=== PATIENT | male | born 1945 | race Caucasian/White ===

== ENCOUNTER 2017-09-09 20:28 | Emergency (ER) | payer MEDICARE ==
[2017-09-09 20:50] VITALS: BP 128/63
[2017-09-09] MEDS ORDERED: Lidocaine 1% MPF* 2 ML VIAL INJ ONE (21:07)
--- NOTE | 2017-09-09 21:14 | UC ---
Laceration HPI - HPI Summary HPI Summary: PATIENT FELL OFF A CHAIR IN HIS KITCHEN ABOUT 4 HOURS [employer]. STRUCK HIS LEFT FOREHEAD ON THE [place] FLOOR AND SUSTAINED A LACERATION. NO LOC. PATIENT DENIES HEADACHE, NAUSEA, DIZZINESS, VISUAL DISTURBANCE. HAS A HISTORY OF PARKINSON'S DISEASE AND HAS BEEN FALLING RECENTLY. PATIENT SEES NEUROLOGY IN [place] AND ALSO HAS A LOCAL NEUROLOGIST HERE - DR. NORIEGA. - History Of Current Complaint Chief Complaint: UCSkin Stated Complaint: HEAD LAC Time Seen by Provider: 09/09/17 20:55 Hx Obtained From: Patient, Family/General Agent - Laceration Location: Face - LEFT FOREHEAD Mechanism Of Injury: Blunt Trauma Onset/Duration: Sudden Onset, Lasting Hours, Still Present Severity: Moderate Pain Intensity: 3 Pain Scale Used: 0-10 Numeric - Allergies/Home Medications Allergies/Adverse Reactions: Allergies Allergy/AdvReac Type Severity Reaction Status Date / Time Penicillins Allergy Severe Vomiting Verified 09/09/17 20:38 Home Medications: Home Medications Baclofen TAB* [Lioresal TAB*] 20 mg PO QID 09/09/17 [History Confirmed 09/09/17 ] Carbidopa/Levodop 25/100 MG(*) [Sinemet 25/100 TAB(*)] 1 tab PO TID 09/09/17 [ History Confirmed 09/09/17] Ropinirole HCl [Requip] 1 mg PO TID 09/09/17 [History Confirmed 09/09/17] PMH/Surg Hx/FS Hx/Imm Hx Other Neurological History: PARKINSONS DISEASE - Surgical History Surgical History: Yes Surgery Procedure, Year, and Place: TONSILECTOMY, BILATERAL BREAST LUMPECTOMY ( [facility]IGN) - Family History Known Family History: Positive: Hypertension - Social History Alcohol Use: Occasionally Substance Use Type: None Smoking Status (MU): Never Smoked Tobacco Review of Systems Constitutional: Negative Skin: Other - LACERATION Respiratory: Negative Cardiovascular: Negative Gastrointestinal: Negative Neurological: Negative All Other Systems Reviewed And Are Negative: Yes Physical Exam Triage Information Reviewed: Yes Appearance: Well-Appearing, No Pain Distress, Well-Nourished Vital Signs: Initial Vital Signs Temp 99.8 F 09/09/17 20:42 Pulse 100 09/09/17 20:42 Resp 16 09/09/17 20:42 BP 128/63 09/09/17 20:42 Pulse Ox 96 09/09/17 20:42 Vital Signs Reviewed: Yes Eyes: Positive: Conjunctiva Clear ENT: Positive: Hearing grossly normal, Pharynx normal, TMs normal, Other - NO FLUID FROM NOSE OR EARS. NO BATTLES SIGN. NO RACCOON EYES Neck: Positive: Supple Respiratory: Positive: No respiratory distress, No accessory muscle use Cardiovascular: Positive: Pulses Normal Neurological: Positive: Alert Psychological: Positive: Normal Response To Family, Age Appropriate Behavior Skin: Positive: Other - 2.5CM LINEAR LACERATION LEFT FOREHEAD WITH SURROUNDING HEMATOMA Laceration Repair - Laceration Repair 1 Description: Linear Laceration Size After Repair: Length (cm) - 2.5CM, Width (mm) - 0MM, Depth (mm) - 4MM Modified For Repair: No Type Injection: Local Anesthesia Used: 1.0% Lido Irrigation With Pressure Irrigation Device: Yes Closure Material: Sutures - 8 SIMPLE INTERRUPTED Closure Method: Single Layer Suture Of: Skin Suture Type: Prolene - 5-0 Laceration Course/Dx - Course/Dx Course Of Treatment: PT WITH MINIMAL DISCOMFORT AT LAC SITE. DENIES MORA, NAUSEA, DIZZINESS, VISUAL DISTURBANCES. OFFERED HEAD CT BASED ON AGE AND DEBILITY. PT AND DECLINE WHICH IS REASONABLE. LACERATION REPAIRED. WILL FOLLOW-UP WITH DR. OLVERA FOR TDAP IF NEEDED. - Differential Dx - Laceration/Wound Provider Diagnoses: LACERATION REPAIR LEFT FOREHEAD Discharge - Sign-Out/Discharge Documenting (check all that apply): Discharge/Admit/Transfer - Discharge Plan Condition: Stable Disposition: HOME Patient Education Materials: Laceration (ED), Hematoma (ED) Referrals: Arnulfo Olvera MD [Primary Care Provider] - If Needed Additional Instructions: KEEP DRESSINGS IN PLACE AND DRY FOR THE FIRST 24 HRS. THEN YOU MAY REMOVE THE DRESSING AND GENTLY CLEANSE WITH SOAP AND WATER. PAT DRY AND RE-BANDAGE. APPLY THIN LAYER ANTIBIOTIC OINTMENT UNDER BANDAGE FOR FIRST 3-4 DAYS ONLY. CHANGE BANDAGE DAILY AND NEEDED IF IT BECOMES SOILED OR WET. SEEK FOLLOW-UP IF YOU DEVELOP SPREADING REDNESS OF THE SKIN, PURULENT DRAINAGE, FEVER, INCREASED PAIN OR ANY OTHER CONCERNING SYMPTOMS. RETURN TO HAVE YOUR EIGHT SUTURES REMOVED IN 10 DAYS FOLLOW-UP WITH DR. OLVERA RE: TDAP BOOSTER. RECOMMEND BOOSTING IF NOT DONE IN THE LAST 5 YEARS. - Billing Disposition and Condition Condition: STABLE Disposition: Home
[2017-09-09] MEDS ORDERED: Lidocaine 1%* 5 ML VIAL ONE (21:15)
== END 2017-09-09 22:20 | disposition home or self-care (01) ==
LOC: UCEAST 20:28
DX: S01.81XA Laceration without foreign body of other part of head, initial encounter (principal); W07.XXXA Fall from chair, initial encounter; Y93.9 Activity, unspecified; Y92.000 Kitchen of unspecified non-institutional (private) residence as the place of occurrence of the external cause; G20 Parkinson's disease; Z88.0 Allergy status to penicillin; Z82.49 Family history of ischemic heart disease and other diseases of the circulatory system
CPT/HCPCS: 12011; 99211; G0463

== ENCOUNTER 2017-09-19 21:13 | Emergency (ER) | payer MEDICARE ==
[2017-09-19 21:23] VITALS: BP 141/62
--- NOTE | 2017-09-19 21:26 | UC ---
HPI Wound/Suture Re-check - HPI Summary HPI Summary: Patient was here 10 days ago and had a laceration repair to the left upper side of his forehead. Patient is here today to have 8 sutures removed. Patient reports this feels well caused no difficulties - History Of Current Complaint Chief Complaint: UCSkin Stated Complaint: STITCHES REMOVED Time Seen by Provider: 09/19/17 21:20 Hx Obtained From: Patient Onset/Duration: Sudden Onset, Lasting Days - 10, Resolved Surgical Site: left side of forehead Pain Intensity: 0 - Allergies/Home Medications Allergies/Adverse Reactions: Allergies Allergy/AdvReac Type Severity Reaction Status Date / Time Penicillins Allergy Severe Vomiting Verified 09/19/17 21:23 PMH/Surg Hx/FS Hx/Imm Hx Previously Healthy: Yes - Parkinsons - Surgical History Surgical History: Yes Surgery Procedure, Year, and Place: TONSILECTOMY, BILATERAL BREAST LUMPECTOMY ( [facility]IGN) - Family History Known Family History: Positive: Hypertension - Social History Occupation: Retired Lives: With Family Alcohol Use: Occasionally Substance Use Type: None Smoking Status (MU): Never Smoked Tobacco Review of Systems Constitutional: Negative Skin: Other - well healed wound left side of forehead Eyes: Negative ENT: Negative Respiratory: Negative Cardiovascular: Negative Gastrointestinal: Negative Genitourinary: Negative Motor: Negative Neurovascular: Negative Musculoskeletal: Negative Neurological: Negative Psychological: Negative Is Patient Immunocompromised?: No All Other Systems Reviewed And Are Negative: Yes Physical Exam Triage Information Reviewed: Yes Appearance: Well-Appearing, No Pain Distress, Well-Nourished Vital Signs Reviewed: Yes Eye Exam: Normal Eyes: Positive: Conjunctiva Clear ENT Exam: Normal ENT: Positive: Normal ENT inspection, Hearing grossly normal. Negative: Trismus , Muffled voice Dental Exam: Normal Neck exam: Normal Neck: Positive: Supple, Nontender Respiratory Exam: Normal Respiratory: Positive: Chest non-tender, No respiratory distress, No accessory muscle use Cardiovascular Exam: Normal Cardiovascular: Positive: RRR, Brisk Capillary Refill Musculoskeletal Exam: Normal Musculoskeletal: Positive: Strength Intact, ROM Intact, Other: - chronic spastic paralaysis Neurological Exam: Normal Neurological: Positive: Alert. Negative: Muscle Tone Normal Psychological Exam: Normal Skin Exam: Normal Skin: Positive: Other - sutures in place well headed wound to left side of forehead Course/Dx - Course Course Of Treatment: sutures removed, wound well approximated, continue with mild soap and water wash recheck with pcp prn - Differential Dx - Laceration/Wound Provider Diagnoses: suture removal left forehead Discharge - Sign-Out/Discharge Documenting (check all that apply): Discharge/Admit/Transfer - Discharge Plan Condition: Stable Disposition: HOME Patient Education Materials: Stitches Removal (ED) Referrals: Arnulfo Olvera MD [Primary Care Provider] - If Needed - Billing Disposition and Condition Condition: STABLE Disposition: Home
== END 2017-09-19 21:36 | disposition home or self-care (01) ==
LOC: UCEAST 21:13
DX: S01.81XD Laceration without foreign body of other part of head, subsequent encounter (principal); X58.XXXD Exposure to other specified factors, subsequent encounter; G20 Parkinson's disease; Z88.0 Allergy status to penicillin; Z82.49 Family history of ischemic heart disease and other diseases of the circulatory system

== ENCOUNTER 2017-09-28 14:55 | Emergency (ER) | payer MEDICARE ==
[2017-09-28 15:36] VITALS: BP 126/78
--- NOTE | 2017-09-28 15:40 | UC ---
Truncal Trauma HPI - HPI Summary HPI Summary: 72 yo male presents with left rib pain. He tells me that 2 days ago he was getting up from the toilet in his bathroom and lost his balance - fell and got wedged between the toilet and bathtub, hitting his left ribs against the side of the tub. Did not hit his head or have LOC. His is with him today and says that pt suffers from Parkinson's and he falls quite often. Denies increased coughing, SOB, chest pain, abdominal pain, dysuria, or hematuria. - History Of Current Complaint Chief Complaint: UCTrauma Stated Complaint: RIB PAIN FROM FALL Time Seen by Provider: 09/28/17 15:40 Hx Obtained From: Patient Severity Initially: Severe Severity Currently: Severe Pain Intensity: 10 Pain Scale Used: 0-10 Numeric Mechanism Of Injury: Blunt Trauma - Allergies/Home Medications Allergies/Adverse Reactions: Allergies Allergy/AdvReac Type Severity Reaction Status Date / Time Penicillins Allergy Severe Vomiting Verified 09/28/17 15:37 Home Medications: Home Medications Acetaminophen TAB* [Tylenol TAB*] 650 mg PO Q4H PRN 09/28/17 [History Confirmed 09/28/17] PMH/Surg Hx/FS Hx/Imm Hx - Additional Past Medical History Additional PMH: Parkinson's - Surgical History Surgical History: Yes Surgery Procedure, Year, and Place: TONSILECTOMY, BILATERAL BREAST LUMPECTOMY ( [facility]IGN) - Family History Known Family History: Positive: Hypertension - Social History Occupation: Retired Lives: With Family Alcohol Use: Occasionally Substance Use Type: None Smoking Status (MU): Never Smoked Tobacco - Immunization History Most Recent Tetanus Shot: utd Review of Systems Constitutional: Negative Skin: Negative Respiratory: Negative Cardiovascular: Negative Gastrointestinal: Negative Neurovascular: Negative Musculoskeletal: Other: - Left rib pain Neurological: Negative Psychological: Negative All Other Systems Reviewed And Are Negative: Yes Physical Exam - Summary Physical Exam Summary: GENERAL: No pain distress. SKIN: No rashes, sores, or open wounds. HEENT: Head: AT/NC. No raccoon eyes. No de luna's sign. Eyes: PERRLA. EOM intact. Conjunctiva clear without inflammation or discharge. Ears: Hearing grossly normal. TMs intact, no bulging, erythema, or edema. NECK: Supple. Nontender. No lymphadenopathy. CHEST: CTAB. No r/r/w. No accessory muscle use. Breathing comfortably and in no distress. CV: RRR. Without m/r/g. Pulses intact. Brisk cap refill. MSK: Left posterior rib TTP 7-9. FROM and symmetric strength throughout. No edema. NEURO: Alert. PSYCH: Age appropriate behavior. Triage Information Reviewed: Yes Vital Signs: Initial Vital Signs Temp 99.8 F 09/28/17 15:32 Pulse 81 09/28/17 15:32 Resp 14 09/28/17 15:32 BP 126/78 09/28/17 15:32 Pulse Ox 99 09/28/17 15:32 Truncal Trauma Course/Dx - Course Course Of Treatment: XR: IMPRESSION: LEFT EIGHTH AND NINTH RIB FRACTURES. I will rx Lidoderm patches for his pain. I am hesitant to prescribe any narcotic medications due to it's sedating effects as I suspect this would be significantly detrimental to the pt. He asked about a torso brace or VALERY wrap - I will also hold off on this because he seems to be quite frail with shallow short breaths at baseline and I do not want to further limit his breathing. Will have him f/u within 4 weeks with his PCP. - Differential Dx/Diagnosis Provider Diagnoses: Left 8th and 9th rib fractures Discharge - Sign-Out/Discharge Documenting (check all that apply): Discharge/Admit/Transfer - Discharge Plan Condition: Stable Disposition: HOME Prescriptions: Lidocaine PATCH 5%* [Lidoderm 5% Patch*] 1 patch TRANSDERM DAILY #30 patch Patient Education Materials: Rib Fracture (ED) Referrals: Arnulfo Olvera MD [Primary Care Provider] - As Soon As Possible Additional Instructions: If you develop a fever, shortness of breath, chest pain, new or worsening symptoms - please call your PCP or go to the ED. 1) Use the lidoderm patches and take tylenol for pain 2) Please schedule an appointment with your PCP within the next 4 weeks for follow up - Billing Disposition and Condition Condition: STABLE Disposition: Home
--- NOTE | 2017-09-28 16:12 | RAD ---
INDICATION: Fall. Left rib pain COMPARISON: None TECHNIQUE: Multiple views of the ribs were obtained. FINDINGS: Bones: There are mildly displaced, posterior lateral, left eighth and ninth rib fractures.. LUNGS: The lungs are clear. There is no pneumothorax. Pleural spaces: There is no evidence of hemothorax. Other: None IMPRESSION: LEFT EIGHTH AND NINTH RIB FRACTURES.
== END 2017-09-28 16:25 | disposition home or self-care (01) ==
LOC: UCEAST 14:55
DX: S22.42XA Multiple fractures of ribs, left side, initial encounter for closed fracture (principal); G20 Parkinson's disease; Z88.0 Allergy status to penicillin; W19.XXXA Unspecified fall, initial encounter; Y93.89 Activity, other specified; Y92.091 Bathroom in other non-institutional residence as the place of occurrence of the external cause
CPT/HCPCS: 99212; G0463